=== PATIENT | female | born 1935 | race Caucasian/White ===

== ENCOUNTER 2017-03-28 08:05 | Day surgery (SDC) | payer MEDICARE ==
[~2017-03-28] VITALS: Ht 167.6 cm; Wt 57.6 kg
[~2017-03-28 08:05] MED LIST: JANT5TAB2 PO; LEVO50TA51 PO; LEXA20TA PO; MAXZ PO; METHTAB3 PO; METO25 PO; NADO20TA PO; POTA10IN2 PO; PROT40TA PO; SIMV10 PO; ULTR50TA PO; VITA100018 PO
[2017-03-28] MEDS ORDERED: LACTATED RINGER'S 1000 ML IV PRN (08:30)
[2017-03-28] MEDS ORDERED: CHLORHEXIDINE GLUCONATE 2 % 1 PACK (2 CLOTHS) TOPICAL PRN (08:30)
[2017-03-28] MEDS ORDERED: POVIDONE IODINE 5% (ANTISEPSIS KIT) 4 APPLICATIONS EACH NARE PRN (08:30)
[2017-03-28] MEDS ORDERED: METOPROLOL TARTRATE 25 MG TAB PO PRN (08:30)
[2017-03-28] MEDS ORDERED: SODIUM CHLORID 0.9% 500 ML IV PRN (08:30)
[2017-03-28] MEDS ORDERED: ceFAZolin 2 GM PREMIX 50 ML IV SCH (08:45)
[2017-03-28] MEDS ORDERED: POVIDONE IODINE 5% (ANTISEPSIS KIT) 4 APPLICATIONS EACH NARE SCH (08:45)
[2017-03-28] MEDS ORDERED: CHLORHEXIDINE GLUCONATE 2 % 1 PACK (2 CLOTHS) TOPICAL SCH (08:45)
[2017-03-28] MEDS ORDERED: VANCOMYCIN 1000 MG/NS 250 ML IV SCH ×2 (08:45)
[2017-03-28] MEDS ORDERED: LEVO88TA2 PO (08:50)
[2017-03-28] MEDS ORDERED: TOPR50TA PO (08:50)
[2017-03-28] MEDS ORDERED: POTA8TAB PO (08:50)
[2017-03-28] MEDS ORDERED: HYDR-3133 PO (08:50)
[2017-03-28] MEDS ORDERED: ESTE1TAB5 (08:50)
[2017-03-28] MEDS ORDERED: DIGO0.12 PO (08:50)
[2017-03-28] MEDS ORDERED: ESCI20TA PO (08:50)
[2017-03-28] MEDS ORDERED: VENTAER INH (08:50)
[2017-03-28] MEDS ORDERED: NITR0.4S SL (08:50)
[2017-03-28] MEDS ORDERED: SIMV10TA PO (08:50)
[2017-03-28] MEDS ORDERED: WARF-23 PO (08:50)
[2017-03-28 08:51] VITALS: BP 123/70; PULSE 74; RESP 18; TEMP 98; O2SAT 95
[2017-03-28 09:00] LABS: AUTOMATED NEUTROPHIL # 3.8 TH/MM3 (1.8-7.7); BASOPHIL % 0.5 % (0.0-2.0); EOSINOPHIL % 0.4 % (0.0-4.0); HEMATOCRIT 45.1 % (35.0-46.0); HEMOGLOBIN 15.3 GM/DL (11.6-15.3); LYMPHOCYTE # 1.2 TH/MM3 (1.0-4.8); MEAN CELL VOLUME 95.3 FL (80.0-100.0); MEAN CORPUSCULAR HEMOGLOBIN 32.3 PG (27.0-34.0); MEAN CORPUSCULAR HGB CONC 33.9 % (32.0-36.0); MEAN PLATELET VOLUME 7.2 FL (7.0-11.0); MONO % 9.3 % (0.0-8.0); MONOCYTE # 0.5 TH/MM3 (0-0.9); NEUT % 68.8 % (16.0-70.0); PLATELET COUNT 170 TH/MM3 (150-450); RED BLOOD COUNT 4.74 MIL/MM3 (4.00-5.30); RED CELL DISTRIBUTION WIDTH 14.2 % (11.6-17.2); WHITE BLOOD COUNT 5.5 TH/MM3 (4.0-11.0)
[2017-03-28] MEDS ORDERED: NS 1000 ML IV SCH (09:00)
[2017-03-28] MEDS ORDERED: MUPIROCIN 2% OINT 1 APPLIC/GM SYR NASAL SCH (09:00)
[2017-03-28 09:11] LABS: PROTHROMBIN TIME - PATIENT 29.8 SEC (9.8-11.6)
[2017-03-28 09:14] LABS: BICARBONATE 28.9 MEQ/L (21.0-32.0); CALCIUM 8.7 MG/DL (8.5-10.1); CREATININE 0.74 MG/DL (0.50-1.00)
[2017-03-28] MEDS ORDERED: LIDOCAINE HCL 2% 50 ML VIAL ONE (09:30)
[2017-03-28] MEDS ORDERED: VANCOMYCIN 500 MG VIAL ONE (09:30)
--- NOTE | 2017-03-28 10:16 | CATHPROC ---
Patient Name: DANIEL VELASCO Study #: [id number] Initial MD: Praveen Haynes Date of : 1935 Study Date: 03/28/2017 Cardiac Catheterization Report 03/28/2017 10:16:22 AM Financial #: [id number] 1 of 7 Patient Name: DANIEL VELASCO Study #: [id number] Initial MD: Praveen Haynes Date of : 1935 Study Date: 03/28/2017 Entire Case Report Patient Information DANIEL HOGAN Patient Name Date of 1935 Age 81 years ROD Financial # [id number] Gender F AlternateID Lab Number 6 Room Number DC06 Height (in) 66.0 Height (cm) 167.6 BSA 1.65 Weight (lbs) 126.7 Weight (kg) 57.6 Patient Address/Phone Number Home Address [facility] Home Phone Number [phone] [address] Study Information Study Number Admission Scheduled Start Study Start [id number] Mar 28 2017 8:05AM 03/28/2017 Mar 28 2017 9:06AM [place] [facility] Cardiac Pacer/ICD Admit Source Facility Department Other [facility] Physician and Clinical Staff Initial Praveen Jerome Registrar Assistant Patsy Garcia RN Other Anesthesia, MEDICAL PATHOLOGY TEACHER Recorder Carmen Pacheco,MILEAGE CLERK TECH2 Recorder Kesha Aguilar,BERNICE Lopezub Eloina Jimenez RT(R) TECH2 03/28/2017 10:16:22 AM Financial #: [id number] 2 of 7 Patient Name: DANIEL VELASCO Study #: [id number] Initial MD: Praveen Haynes Date of : 1935 Study Date: 03/28/2017 Equipment Time Home Delivery Driver Description Size Mfg Part Number Used/Scraped DERMABOND, ADHESIVE SKIN [id number] 09:08 CORDIS/PACER * Used GLUE MINI *[id number] 09:08 MEDLINE INDUSTRIES SUTURE, STRIP PLUS 1/2" * Used *[id number] 09:08 MEDLINE PACER SANDHU, LIMB * 2530 *[id number] Used [id number] 09:08 MEDLINE PACER PACK, PACER CUSTOM * Used *[id number] 09:46 Needle Sponge Count 1 1 Used SUTURE, 2-0 VICRYL [CT1] ([id number]) [id number] 09:08 STRONG MEDICAL BLANKET,WARM AIR CCL * Used *[id number] 09:59 [facility] PACEMAKER, ASSURITY DR TEJEDA DDDR [id number] Used [facility] PAD, ELECTROSURGICAL 09:08 * [id number] *[id number] Used SURGICAL GROUNDING ORANGE [id number] 09:08 VITATRON MEDTRONIC PLASMABLADE, PEAD 3.0S * Used *[id number] Equipment Model, Serial, Lot Number and Expiration Data Description Model Number Serial Number Lot Number Expiration Date PACEMAKER, ASSURITY DR TEJEDA [id number] 08-18-2018 Insurance Information Insurance Payor Private Health Insurance Third Democrat Third Democrat Number C - MCR O [id number] History: Allergies Allergy Reaction No Known Allergies History: Risk Factors Hypertension Dyslipidemia Yes Yes Chronic Lung Disease Labs Hgb (g/dl) Hct (%) RBC (MIL/MM3) WBC (l/cumm) Platelets (thousands) 11.60-17.00 35.00-51.00 4.00-5.90 4.00-11.00 150.00-450.00 15.3 45.1 4.7 5.5 170 03/28/2017 10:16:22 AM Financial #: [id number] 3 of 7 Patient Name: DANIEL VELASCO Study #: [id number] Initial MD: Praveen Haynes Date of : 1935 Study Date: 03/28/19 18 Glucose (mg/dl) BUN (mg/dl) Creatinine (mg/dl) BUN:Creatinine (1:x) 74.00-106.00 7.00-18.00 0.50-1.30 10.00-20.00 132 3 0.7 4.3 Na (meq/l) K (meq/l) Cl (meq/l) CO2 (mmol/L) Ca (mg/dl) 136.00-145.00 3.50-5.10 98.00-107.00 21.00-32.00 8.50-10.10 137 4.1 102 28.9 8.7 PT (sec) PTT (sec) INR (PTT:PT) 9.80-11.60 24.30-30.10 0.90-1.10 29.8 36.9 3 Medication Medication Total Dose (Bolus/Oral) Medication Total Dosage/Unit 2% XYLOCAINE 40 mL Medications (Bolus/Oral) Medication Time Given Dosage/Unit Administered By Reason 2% XYLOCAINE 03/28/2017 9:57:04 AM 40 mL Praveen Haynes 40 mL 2% XYLOCAINE given in lab by Praveen Haynes in Left shoulder via Subcutaneous. Ordered by Praveen Haynes. Medication (Drip) Medication Time Given Dosage/Unit Concentration/Unit Diluent (ml) Solution ANCEF 03/28/2017 9:27:10 AM 2 g 2 g ANCEF given in lab by Anesthesia, MEDICAL PATHOLOGY TEACHER in Right Antecubital via Peripheral IV. Ordered by Praveen Haynes. VANCOCIN 03/28/2017 9:27:08 AM 1 g 1 g VANCOCIN given in lab by Anesthesia, MEDICAL PATHOLOGY TEACHER in Right Antecubital via Peripheral IV. Ordered by Praveen Patton. 03/28/2017 10:16:22 AM Financial #: [id number] 4 of 7 Patient Name: DANIEL VELASCO Study #: [id number] Initial MD: Praveen Haynes Date of : 1935 Study Date: 03/28/2017 Initial Case Assessment Cardiovascular HR NIBP 65 129/62 Neurological State Oriented to time-place- Alert Moves all extremities person Respiration - General Respiration Rate SpO2 (%) (B/min) 13 95 Final Case Assessment Cardiovascular HR NIBP 91 106/56 Edema Present Skin color Skin None Normal Warm Dry Neurological State Oriented to time-place- Alert Moves all extremities person Respiration - General Respiration Rate SpO2 (%) O2 (lpm) (B/min) 13 99 4 Chronological Log Time Study Chronological Log 9:16:43 Patient arrived via Bed. 9:16:44 Patient Name, D.O.B, / Armband Verified By R.N. 9:16:46 Consent signed by the physician and the patient and verified by the [facility] staff. 9:16:47 Pre-op and post- op instructions given; patient acknowledges understanding of instructions. 9:16:48 Verbal Stimulation=2 Physical Stimulation=2 Airway=2 Respiration=2 TOTAL=8. (0=absent, 1=li mited, 2=present) 9:17:00 Anesthesia at bedside. Assumes care of patient. 9:17:02 Patient has been NPO for More than 6Hrs. 9:17:03 Skin Breakdown- 9:17:04 Patient Warmer Placed on the Table. 9:17:05 Disposable Defibrillator Pads Placed On Patient. 9:17:07 Maxine Prominences Protected 03/28/2017 10:16:22 AM Financial #: [id number] 5 of 7 Patient Name: DANIEL VELASCO Study #: [id number] Initial MD: Praveen Haynes Date of : 1935 Study Date: 03/28/2017 9:17:07 A # 20 IV was noted in the Antecubital (left). Grade = 0 9:17:08 A # 20 IV was noted in the Antecubital (right). Grade = 0 9:17:09 History and physical on the chart or being dictated. 9:27:08 1 g VANCOCIN given in lab by Anesthesia, MEDICAL PATHOLOGY TEACHER in Right Antecubital via Peripheral IV. Order ed by Praveen Haynes. 9:27:10 2 g ANCEF given in lab by Anesthesia, MEDICAL PATHOLOGY TEACHER in Right Antecubital via Peripheral IV. Ordered by Praveen Haynes. 9:31:40 History and physical on the chart or being dictated. Assessment: Initial Case, HR=65 BPM, UWOC=965/62 mmhg 9:31:41 Neurological: State=Alert, Ox3, BOCANEGRA Respiration: Resp=13 B/min, SpO2=95 % 9:36:49 MD NOTIFIED ABOUT 3.0 INR 9:37:32 Disposable Defibrillator Pads Placed On Patient. 9:37:36 Bovie ground pad applied to: RIGHT UPPER THIGH 9:38:04 2% CHLORHEXIDINE GLUCONATE WASH AND NASAL SWIPE DONE PRIOR TO PROCEDURE. 9:38:11 Pre-procedure assessment data was performed with the previous procedure. 9:38:21 Left Upper Chest Prepped Times Two. MD RESPONDED REGARDING INR ,PROCEED WITH PROCEDURE 9:38:39 First Sponge And Instrument Count Done by Patsy Garcia, BERNICE. 9:47:04 Hypo's: 1, 20 Sponges: sponges, Bovie/scratch: bovie/scratch Sutures: 3, Blades: 1, Instruments: 25, Syveck Patches: ~SYVECK PATCH~ Time Out. Correct patient, procedure, procedure equipment, site and side verified with physicia n present. Time 9:56:49 concurred by MD, individual staff and MEDICAL PATHOLOGY TEACHER. Time Out #2 - Consents verified, patient in correct position, all results are labled and displa yed, safety precautions 9:56:50 taken, antibiotics administered. Time out concurred by MD, individual staff and MEDICAL PATHOLOGY TEACHER in procedu re 9:57:01 Case Start 9:57:04 40 mL 2% XYLOCAINE given in lab by Praveen Haynes in Left shoulder via Subcutaneous. Ordered by Praveen Haynes. 9:57:44 Surgical Incision Made. LEFT UPPER CHEST 9:57:57 A pocket was created at the L Upper Chest. 10:01:05 A device was explanted. 10:01:09 Pocket flushed with antibiotic solution 10:01:13 A PACEMAKER, ASSURITY DR RF DDDR was connected and placed in the pocket. Second Sponge And Instrument Count Done by Patsy Garcia RN. 10:04:38 Hypo's: 1, 20 Sponges: sponges, Bovie/scratch: bovie/scratch Sutures: ~SUTURE~, Blades: 1, Instruments: 25, Syveck Patches: ~SYVECK PATCH~ 10:08:57 The pocket was closed. 10:09:00 Implant Procedure was performed. 10:09:09 A PPM Removal . (Dual) 10:09:13 A PPM Implant . (Dual) 10:09:19 Case End The Final Sponge And Instrument Count Done by Patsy Garcia RN. 10:09:36 Hypo's: 1, 20 Sponges: sponges, Bovie/scratch: bovie/scratch Sutures: 1, Blades: 1, Instruments: 25, Syveck Patches: ~SYVECK PATCH~ 03/28/2017 10:16:22 AM Financial #: [id number] 6 of 7 Patient Name: DANIEL VELASCO Study #: [id number] Initial MD: Praveen Haynes Date of : 1935 Study Date: 03/28/2017 10:10:09 Steri-strips and a sterile dressing applied to site. 10:14:07 Sterile dressing applied to site 10:14:08 No case complications noted. Assessment: Final Case, HR=91 BPM, RBAJ=665/56 mmhg, Edema=None, Color=Normal, Skin = Warm, Dr y 10:14:15 Neurological: State=Alert, Ox3, BOCANEGRA Respiration: Resp=13 B/min, SpO2=99 %, O2=4 lpm 10:14:56 Cine recording checked. 10:14:59 Bedside Report will be given. 10:15:24 Implantable Device card placed in patient's chart. 10:15:30 Patient moved to stretcher End Study - Contrast Media Used In Study Contrast Total Opened (mL) Total Used (mL) Total Wasted (mL) Unspecified 0 0 0 End Study - Maximum Contrast Load Max Contrast Load (mL) 411.4 End Study - Radiation Exposure Fluoro Time (minutes) 0.0 End Study - Patient Disposition Complications Transferred To Telemetry Bed 03/28/2017 10:16:22 AM Financial #: [id number]
[2017-03-28] MEDS ORDERED: MIDAZOLAM HCL 2 MG/2 ML VIAL ONE (10:23)
--- NOTE | 2017-03-28 10:23 | PD.CARD ---
PPM GENERATOR REPLACEMENT PROCEDURE DATE: Mar 28, 2017 PPM GENERATOR REPLACEMENT PROC PROCEDURE PERFORMED Permanent pacemaker removal, permanent pacemaker replacement, pocket revision. Ms. Barrera is a 81 -year-old female with history of atrial fibrillation, on anticoagulation, pacemaker end of life who undergo pacer removal and replacement . The risks, the nature and the benefit of the procedure were clearly stated to her. The risks include pneumothorax, cardiac perforation, stroke and even . The patient understood and agreed to proceed. PROCEDURE After written informed consent was obtained, the patient was brought to the EP lab where was prepped and draped in the sterile fashion. Conscious sedation was initiated and maintained throughout the procedure by anesthesia. Once sedation was verified, the left infraclavicular area over the generator was anesthetized with 2% Xylocaine. Using a #11 scalpel, a 3 centimeter incision was made over the existing generator. Dissection was then taken down to deep fascial layer using Bovie cautery and blunt dissection. Once exposed, the generator was removed from the pocket. The pocket was expanded. Scar tissue was removed around the leads. Then, the leads were disconnected and tested. The patient was in atrial fibrillation. At that point, the pocket was copiously irrigated using antibiotic solution. The leads were connected to the new generator and placed into the pocket. The pacemaker was interrogated. She was A-sensing, V-pacing. I did proceed with wound closure. The deep fascial layer was approximated with 2-0 Vicryl suture in a continuous fashion. The subcutaneous layer was approximated with 2-0 Vicryl suture in a continuous fashion. Dermabond adhesive was applied to the wound followed by a sterile pressure dressing. There was no complication. The patient tolerated procedure. Blood loss minimal. EXPLANTED HARDWARE The explanted permanent pacemaker is a [employer]. Model 5826 serial number [id number]. For information about the existing leads, please refer to previous dictation. IMPLANTED HARDWARE The implanted permanent pacemaker is a [employer] model number [id number], serial number [id number]. THRESHOLDS The right atrial pacing threshold cannot be measured because patient in atrial fibrillation. Lead impedance 390 ohms and P wave at 0.4 millivolts. The right ventricular pacing threshold in bipolar mode was 1.2 volts at 0.4 milliseconds. Lead impedance 530 ohms. SETTINGS The device is set in a VVIR 60. Upper limit 100 beats per minute. Hysteresis and mode switch are on. CONCLUSIONS Successful permanent pacemaker removal, permanent pacemaker implantation, pocket revision. COMMENT AND RECOMMENDATIONS The patient will be transferred to the telemetry unit. He will be observed. The patient will be discharged home later on today. Praveen Haynes MD Mar 28, 2017 10:23
[2017-03-28] MEDS ORDERED: NORC5TAB PO (10:43)
[2017-03-28] MEDS ORDERED: CEPH-460 PO (10:43)
[2017-03-28] MEDS ORDERED: ACETAMINOPHEN/CODEINE 300 MG/30 MG TAB PO PRN ×2 (10:45)
[2017-03-28] MEDS ORDERED: SODIUM CHLORIDE 0.9% FLUSH 10 ML FLUSH IV FLUSH PRN (10:45)
[2017-03-28] MEDS ORDERED: ONDANSETRON HCL 4 MG/2 ML VIAL IV PUSH PRN (10:45)
[2017-03-28] MEDS ORDERED: DO NOT ADM ANY ANTICOAGULANT DRUGS PRN (11:15)
[2017-03-28] MEDS ORDERED: PROPOFOL 200 MG/20 ML AMP IV ONE (12:00)
[2017-03-28] MEDS ORDERED: LIDOCAINE HCL 1% PF 5 ML SYRINGE OTHER ONE (12:00)
--- NOTE | 2017-03-28 18:43 | EKG ---
Date Performed: 03/28/2017 Time Performed: 08:55:54 PTAGE: 81 years EKG: Atrial fibrillation with demand pacing Compared to previous tracing, the patient is now in demand pacing Abnormal ECG PREVIOUS TRACING : 11/25/2011 10.34 DOCTOR: Mecca Fuentes Interpretating Date/Time 03/28/2017 18:42:21
[2017-03-28] MEDS ORDERED: SODIUM CHLORIDE 0.9% FLUSH 10 ML FLUSH IV FLUSH SCH (21:00)
== END 2017-03-28 12:37 | disposition home or self-care (01) ==
LOC: HDOC 08:05 → HDIC 08:06 → HDOC 12:37
PROVIDERS: ATTEND Internal Medicine Interventional Cardiology
DX: Z45.010 Encounter for checking and testing of cardiac pacemaker pulse generator [battery] (principal); I11.0 Hypertensive heart disease with heart failure; I50.31 Acute diastolic (congestive) heart failure; I48.91 Unspecified atrial fibrillation; R00.1 Bradycardia, unspecified; E78.5 Hyperlipidemia, unspecified; I47.1 Supraventricular tachycardia; R53.83 Other fatigue; R06.00 Dyspnea, unspecified; Z87.891 Personal history of nicotine dependence
CPT/HCPCS: 00400; 33228; 80048; 85025; 85610; 85730; 86850; 86900; 86901; 93005; C1785; J0690; J2250; J3010; J3370; J7050; 33213